=== PATIENT | male | born 1995 | race African-American/Black ===

== ENCOUNTER 2022-10-26 15:10 | Emergency (ER) | payer OTHER ==
[~2022-10-26] VITALS: Ht 175.3 cm; Wt 77.3 kg
[2022-10-26] MEDS ORDERED: MONT-40 PO (15:25)
[2022-10-26] MEDS ORDERED: BECL10.62 IH (15:25)
[2022-10-26] MEDS ORDERED: FLUT1DIS6 IH (15:25)
[2022-10-26] MEDS ORDERED: ALBU18HF12 PO (15:25)
[2022-10-26 17:43] VITALS: BP 118/79
== END 2022-10-26 19:00 | disposition left against medical advice (07) ==
LOC: EMS 15:10
DX: R07.9 Chest pain, unspecified (principal); Z53.21 Procedure and treatment not carried out due to patient leaving prior to being seen by health care provider
CPT/HCPCS: 93005; 99281; Z7502